=== PATIENT | female | born 1975 | race Caucasian/White ===

== ENCOUNTER 2018-06-01 09:30 | Emergency (ER) | payer BC ==
[~2018-06-01] VITALS: Ht 152.4 cm; Wt 54.4 kg
[~2018-06-01 09:30] MED LIST: ANAPROX DS550 MG PO; CIPROFLOXACIN500 MG PO; FLEXERIL10 MG PO; MOTRIN800 MG PO; ZITHROMAX Z PA250 MG PO
[2018-06-01 10:04] LABS: BASO % 0.4 % (0.0-1.0); EOS # 0.1 10*3/uL (0.0-0.4); EOS % 1.3 % (1.0-4.0); HEMATOCRIT 41.9 % (37.0-47.0); HEMOGLOBIN 14.4 g/dl (12.0-16.0); LYMPH % 9.2 % (27.0-41.0); MEAN CELL VOLUME 90.5 fl (81.0-99.0); MEAN CORPUSCULAR HGB 31.1 pg (27.0-31.0); MEAN CORPUSCULAR HGB CONC 34.4 g/dl (33.0-37.0); MONO # 0.4 10*3/uL (0.1-1.0); MONO % 3.4 % (3.0-9.0); NEUT # 9.3 10*3/uL (2.3-7.9); NEUT % 85.4 % (47.0-73.0); PLATELET COUNT AUTOMATED 192 10*3/uL (130-400); RED BLOOD COUNT 4.63 10*6/uL (4.10-5.10); RED CELL DISTRI WIDTH 13.1 % (0-14.5); WHITE BLOOD COUNT 10.9 10*3/uL (4.8-10.8)
[2018-06-01 10:18] LABS: ALKALINE PHOSPHATASE 83 U/L (45-117); BUN 15 mg/dl (7-24); CHLORIDE 106 mmol/L (98-107); CREATININE 0.65 mg/dL (0.55-1.02); LIPASE 106 U/L (73-393); POTASSIUM 3.5 mmol/L (3.5-5.1); SGOT/AST 16 IU/L (3-35); SGPT/ALT 19 U/L (12-78); SODIUM 138 mmol/L (136-145); TOTAL PROTEIN 7.5 gm/dL (6.4-8.2)
[2018-06-01 10:20] LABS: BILIRUBIN NEGATIVE (NEGATIVE); BLOOD 2+ (NEGATIVE); CLARITY CLOUDY (CLEAR); COLOR YELLOW (YELLOW); GLUCOSE NEGATIVE (NEGATIVE); KETONE 1+ (NEGATIVE); LEUKO ESTERASE NEGATIVE (NEGATIVE); NITRITE NEGATIVE (NEGATIVE); SPECIFIC GRAVITY >= 1.030 (1.005-1.030); UROBILINOGEN 0.2 E.U./dl (0.2-1.0)
[2018-06-01 10:24] LABS: BETA-HCG, QUANT < 1.0 mIU/mL (1-3)
[2018-06-01 10:40] LABS: BACTERIA 2+
[2018-06-01] MEDS ORDERED: Motrin,Rufen800 MG PO (13:01)
[2018-06-01] MEDS ORDERED: PHENERGAN25 M3 PO (13:01)
== END 2018-06-01 13:07 | disposition home or self-care (01) ==
LOC: ED 09:30
PROVIDERS: Emergency Medicine
DX: K52.9 Noninfective gastroenteritis and colitis, unspecified (principal); F17.200 Nicotine dependence, unspecified, uncomplicated; Z88.8 Allergy status to other drugs, medicaments and biological substances; Z98.51 Tubal ligation status

== ENCOUNTER → 2020-06-15 | Outpatient (CLI) | payer BC ==
[~2020-06-15] MED LIST changes: +Motrin,Rufen800 MG PO; +PHENERGAN25 M3 PO
== END | disposition home or self-care (01) ==
LOC: LAB 10:21
PROVIDERS: ATTEND Physician Assistant Medical
DX: M25.50 Pain in unspecified joint (principal); M89.9 Disorder of bone, unspecified; M79.10 Myalgia, unspecified site

== ENCOUNTER → 2023-07-05 | Outpatient (CLI) | payer BC | END | disposition home or self-care (01) | LOC: US 10:47 | PROVIDERS: ATTEND Nurse Practitioner Women's Health | DX: N85.8 Other specified noninflammatory disorders of uterus (principal); N92.6 Irregular menstruation, unspecified; Z87.42 Personal history of other diseases of the female genital tract ==